=== PATIENT | female | born 1955 | race Caucasian/White ===

== ENCOUNTER 2020-02-07 14:38 | Inpatient (IN) ==
--- NOTE | 2020-02-07 15:07 | Emergency Department Note ---
History of Present Illness General Chief complaint: Illness Time Seen by Provider: 02/07/20 14:40 Source: patient and EMS History of Present Illness Provider complaint: Lightheadedness Onset (ago): day(s) Location: head Severity: moderate Pain Consistency: + intermittent Quality: + other (Near syncope and syncope) Relieved By: + none Exacerbated By: + none Associated symptoms: + cough, + fever/chills, + headaches, + malaise, + shortness of breath and + syncope; no chest pain and no nausea/vomiting This is a 64-year-old female who presents with a syncopal event with near syncopal events following. The patient states that 2 days ago she was sitting in her chair when she felt very hot and clammy and passed out in her chair. She was briefly unconscious according to her . And she had no other preceding symptoms such as chest discomfort or pain, palpitations or shortness of breath. She does state that she was diagnosed with COVID-19 earlier this week at [facility]. She has been sick for about 8 days with diffuse myalgias, fever up to 101.5, cough and headache. Currently she states her headache is better but it was worse earlier in the week. She is on Eliquis for atrial fibrillation. She states yesterday and this morning she had similar events where she felt very hot and clammy and felt as if she was going to pass out. She did not pass out the subsequent times. She states she feels a tiny bit short of breath but otherwise is improving overall. She had a loss of taste and smell but that seems to be coming back. She does have some diarrhea. She denies any abdominal pain or vomiting. She denies any melena or hematochezia or hematuria. She is also concerned about Lyme disease as she had a tick last month. Home Medications Home Medications Medication Instructions Recorded Confirmed Type B-complex with vitamin C 1 tab PO QAM 11/04/18 02/07/20 History cholecalciferol (vitamin D3) 25 1,000 units PO QAM 02/03/19 02/07/20 History mcg (1,000 unit) capsule apixaban 5 mg tablet 5 mg PO BID #60 tab 09/19/19 02/07/20 Rx amlodipine 2.5 mg tablet 2.5 mg PO DAILY #90 tab 11/28/19 02/07/20 Rx levothyroxine 25 mcg PO QAM 02/07/20 02/07/20 History lisinopril 40 mg PO QAM 02/07/20 02/07/20 History metoprolol succinate 50 mg PO QAM 02/07/20 02/07/20 History Allergies Allergy/AdvReac Type Severity Reaction Status Date / Time No Known Drug Allergies Allergy Verified 02/07/20 15:13 Past Med/Surg History Medical History (Updated 02/07/20 @ 18:38 by Otilio Wakefield MD) Atrial fibrillation Hypothyroidism Lyme disease Surgical History No pertinent past surgical history Family History Father Heart disease Stroke Brother Heart disease Mother Leukemia Son Leukemia Social History Smoking Status: Never smoker Second Hand Exposure: No; Hx Alcohol Use: No Hx Substance Use: No Preferred Language: Irish Communication Ability: Effective Visual Impairment: No Limitations Hearing Ability: Normal Advertising Account Manager Required: No marital status: Current Living Situation: Spouse current occupational status: other 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 and A total of 10 systems reviewed and were otherwise negative Physical Exam Vital Signs Vital Signs - 24 hr 02/07/20 15:24 02/07/20 15:47 02/07/20 16:08 Temperature 36.7 C Temperature Source Oral Pulse Rate - Lying Pulse Rate - Sitting Pulse Rate - Standing Pulse Rate 90 102 H 93 H Pulse Rate from SpO2 Sensor 100 H 95 H Pulse Rhythm Irregular Respiratory Rate 21 23 23 Respiratory Effort / Characteristics Non-Labored Spontaneous Respiratory Depth Normal Respiratory Pattern Regular Blood Pressure - Lying Blood Pressure - Sitting Blood Pressure- Standing Blood Pressure 138/94 138/94 143/89 H Blood Pressure Mean 108 101 107 Pulse Oximetry 96 94 95 Oxygen Delivery Method Room Air Sepsis Recent Fever Within 48 Hours No Sepsis New/Unexplained Change in Mental Status No Sepsis Action Taken by Nursing No Action Required 02/07/20 16:11 02/07/20 16:13 02/07/20 16:14 Temperature Temperature Source Pulse Rate - Lying 98 H Pulse Rate - Sitting 115 H Pulse Rate - Standing 108 H Pulse Rate 133 H 106 H 116 H Pulse Rate from SpO2 Sensor 78 95 H 73 Pulse Rhythm Respiratory Rate 32 H 23 26 H Respiratory Effort / Characteristics Respiratory Depth Respiratory Pattern Blood Pressure - Lying 146/96 H Blood Pressure - Sitting 139/111 H Blood Pressure- Standing 170/100 H Blood Pressure 146/96 H 139/111 H 170/100 H Blood Pressure Mean 103 118 113 Pulse Oximetry 94 95 97 Oxygen Delivery Method Sepsis Recent Fever Within 48 Hours Sepsis New/Unexplained Change in Mental Status Sepsis Action Taken by Nursing 02/07/20 16:30 02/07/20 17:00 02/07/20 17:30 Temperature Temperature Source Pulse Rate - Lying Pulse Rate - Sitting Pulse Rate - Standing Pulse Rate 88 86 93 H Pulse Rate from SpO2 Sensor 93 H 87 98 H Pulse Rhythm Respiratory Rate 33 H 33 H 26 H Respiratory Effort / Characteristics Respiratory Depth Respiratory Pattern Blood Pressure - Lying Blood Pressure - Sitting Blood Pressure- Standing Blood Pressure 140/102 H 144/102 H 143/106 H Blood Pressure Mean 127 120 115 Pulse Oximetry 96 96 94 Oxygen Delivery Method Sepsis Recent Fever Within 48 Hours Sepsis New/Unexplained Change in Mental Status Sepsis Action Taken by Nursing Constitutional: Vital signs reviewed. Eyes: Pupils are equal round reactive to light. Conjunctiva are noninjected. ENT: Pharynx is clear without erythema or exudate. Mucous membranes are moist. No midline tenderness to cervical spine. Neck supple without meningeal signs. Respiratory: Clear to auscultation bilaterally. Breath sounds are equal bilaterally. Cardiovascular: Regular rate and rhythm. No rubs or gallops. GI: Soft, nondistended and nontender. Bowel sounds are present. Musculoskeletal: No peripheral edema. No lower extremity tenderness. Integumentary: No cyanosis. or jaundice. Neurologic: The patient is awake and alert. Cranial nerves II-XII are intact. Motor is 5 out of 5 all extremities. Sensation is intact to light touch all extremities. Normal speech. No pronator drift. No limb ataxia. Psychiatric: Normal affect. Not anxious appearing. Course Administered Medications Discontinued Medications Ioversol (Optiray 320 125ml) 120 ml IV ONCE ONE Stop: 02/07/20 17:38 Last Admin: 02/07/20 17:37 Dose: 120 ml Documented by: [id number] Medical Decision Making Differential Diagnosis COVID-19 pneumonia, dysrhythmia, anemia, Lyme carditis, pulmonary embolism, ICH Medical Records Attestation: I reviewed the patient's medical records. I did perform a limited focused review of portions of the patient's old chart on the electronic medical record. The patient has had no recent pertinent visits to this hospital. Home Medications Current Medication List: was personally reviewed by me Laboratory Data Attestation: I reviewed the patient's lab results. Result diagrams: 02/07/20 15:53 02/07/20 15:53 Lab Results 02/07/20 02/07/20 02/07/20 Range/Units 15:53 15:53 15:53 WBC 5.66 (4.8-10.8) K/uL RBC 4.55 (4.2-5.4) M/uL Hgb 15.4 (12.0-16.0) g/dL Hct 45.2 (37-47) % MCV 99.3 (80-100) fL MCH 33.8 (25-34) pg MCHC 34.1 (32-36) g/dL RDW Std Deviation 47.6 H (36.4-46.3) fL RDW Coeff of Karena 13.2 (11.5-14.5) % Plt Count 196 (130-400) K/uL MPV 10.6 H (7.4-10.4) fL Immature Gran % (Auto) 0.2 % Neut % (Auto) 62.7 % Lymph % (Auto) 27.4 % Kaufman % (Auto) 9.0 % Eos % (Auto) 0.2 % Baso % (Auto) 0.5 % Neut # (Auto) 3.55 (1.4-6.5) K/uL Lymph # (Auto) 1.55 (1.2-3.4) K/uL Kaufman # (Auto) 0.51 (0.11-0.59) K/uL Eos # (Auto) 0.01 (0-0.5) K/uL Baso # (Auto) 0.03 (0-0.2) K/uL Immature Gran # (Auto) 0.01 (0.00-0.02) K/uL PT 10.9 (9.0-12.0) Seconds INR 1.0 (0.9-1.1) APTT 33.6 H (21.0-31.0) Seconds PTT Ratio 1.2 D-Dimer 720 H* (0-500) ug/L FEU Sodium 138 (136-145) mmol/L Potassium 3.8 (3.5-5.1) mmol/L Chloride 102 (98-107) mmol/L Carbon Dioxide 33 H (21-32) mmol/L Anion Gap 3.0 (3-11) BUN 12 (7-18) mg/dl Creatinine 0.75 (0.6-1.2) mg/dl Est Cr Clr Drug Dosing 91.9 ml/min Est GFR ( Amer) 96.3 Est GFR (Non-Af Amer) 83.1 BUN/Creatinine Ratio 16.3 (10-20) Glucose 106 H (70-99) mg/dl Calcium 8.6 (8.5-10.1) mg/dl Magnesium 2.4 (1.8-2.4) mg/dl Total Bilirubin 0.5 (0.2-1) mg/dl AST 37 (15-37) U/L ALT 33 (12-78) U/L Alkaline Phosphatase 76 (45-117) U/L Troponin I < 0.015 (0-0.045) ng/ml Total Protein 7.9 (6.4-8.2) gm/dl Albumin 3.2 L (3.4-5.0) gm/dl Globulin 4.7 H (2.5-4.0) gm/dl Albumin/Globulin Ratio 0.7 L (0.9-2) TSH 2.550 (0.300-4.500) uIu/ml Urine Color Urine Appearance (Clear) Urine pH (4.5-7.5) Ur Specific [place] (1.000-1.030) Urine Protein (Negative) Urine Glucose (UA) (Negative) Urine Ketones (Negative) Urine Blood (Negative) Urine Nitrite (Negative) Urine Bilirubin (Negative) Urine Urobilinogen (Negative) Ur Leukocyte Esterase (Negative) Urine WBC (Auto) (0-5) /hpf Urine RBC (Auto) (0-4) /hpf U Hyaline Cast (Auto) (0-5) /lpf U Epithel Cells (Auto) (0-5) /lpf Urine Bacteria (Auto) (Negative) Lyme Disease IgG Ab (Negative) Lyme Disease IgM Ab (Negative) 02/07/20 02/07/20 Range/Units 15:53 16:00 WBC (4.8-10.8) K/uL RBC (4.2-5.4) M/uL Hgb (12.0-16.0) g/dL Hct (37-47) % MCV (80-100) fL MCH (25-34) pg MCHC (32-36) g/dL RDW Std Deviation (36.4-46.3) fL RDW Coeff of Karena (11.5-14.5) % Plt Count (130-400) K/uL MPV (7.4-10.4) fL Immature Gran % (Auto) % Neut % (Auto) % Lymph % (Auto) % Kaufman % (Auto) % Eos % (Auto) % Baso % (Auto) % Neut # (Auto) (1.4-6.5) K/uL Lymph # (Auto) (1.2-3.4) K/uL Kaufman # (Auto) (0.11-0.59) K/uL Eos # (Auto) (0-0.5) K/uL Baso # (Auto) (0-0.2) K/uL Immature Gran # (Auto) (0.00-0.02) K/uL PT (9.0-12.0) Seconds INR (0.9-1.1) APTT (21.0-31.0) Seconds PTT Ratio D-Dimer (0-500) ug/L FEU Sodium (136-145) mmol/L Potassium (3.5-5.1) mmol/L Chloride (98-107) mmol/L Carbon Dioxide (21-32) mmol/L Anion Gap (3-11) BUN (7-18) mg/dl Creatinine (0.6-1.2) mg/dl Est Cr Clr Drug Dosing ml/min Est GFR ( Amer) Est GFR (Non-Af Amer) BUN/Creatinine Ratio (10-20) Glucose (70-99) mg/dl Calcium (8.5-10.1) mg/dl Magnesium (1.8-2.4) mg/dl Total Bilirubin (0.2-1) mg/dl AST (15-37) U/L ALT (12-78) U/L Alkaline Phosphatase (45-117) U/L Troponin I (0-0.045) ng/ml Total Protein (6.4-8.2) gm/dl Albumin (3.4-5.0) gm/dl Globulin (2.5-4.0) gm/dl Albumin/Globulin Ratio (0.9-2) TSH (0.300-4.500) uIu/ml Urine Color Dark Yellow Urine Appearance Clear (Clear) Urine pH 6.5 (4.5-7.5) Ur Specific [place] 1.020 (1.000-1.030) Urine Protein 2+ H (Negative) Urine Glucose (UA) Negative (Negative) Urine Ketones Negative (Negative) Urine Blood Negative (Negative) Urine Nitrite Negative (Negative) Urine Bilirubin Negative (Negative) Urine Urobilinogen Negative (Negative) Ur Leukocyte Esterase Negative (Negative) Urine WBC (Auto) 1-5 (0-5) /hpf Urine RBC (Auto) 0-4 (0-4) /hpf U Hyaline Cast (Auto) 0 (0-5) /lpf U Epithel Cells (Auto) >30 H (0-5) /lpf Urine Bacteria (Auto) Negative (Negative) Lyme Disease IgG Ab Negative (Negative) Lyme Disease IgM Ab Negative (Negative) Imaging Data Radiologist's Impression: XR chest 1V portable HISTORY: covid eval for pna COMPARISON: None. FINDINGS: The cardiac silhouette is mildly enlarged. No focal lung consolidations to suggest pneumonia. No evidence for pulmonary edema. No pleural effusions. No pneumothorax. IMPRESSION: Mild cardiomegaly. ACT 112: Negative or not required by law. Electronically signed by: Juan Crocker M.D. 02/07/2020 3:58 PM CHEST CTA for PULMONARY ARTERIES CT DOSE: 1849.53 mGy.cm HISTORY: syncope eval for PE TECHNIQUE: Multiaxial CT images of the chest were performed following the intravenous administration of contrast to evaluate the pulmonary arteries. Maximal intensity projection images were also obtained. A dose lowering technique was utilized adhering to the principles of ALARA. COMPARISON STUDY: None. FINDINGS: Normal caliber thoracic aorta with no evidence for dissection. The heart is mildly enlarged. No pleural or pericardial effusions. Small fat- containing hiatal hernia. No filling defects within the pulmonary arteries to suggest pulmonary embolus. Normal esophagus. Limited views of the upper abdomen demonstrate a normal liver, spleen, and adrenal glands. Prior cholecystectomy. A single prominent upper right paratracheal lymph node measuring 7 mm in short axis diameter. It does not meet CT criteria for pathologic involvement. Therefore, no mediastinal or hilar lymphadenopathy. No suspicious lytic or blastic osseous lesions. No pneumothorax. The central airways are patent. Small peripheral scattered groundglass opacities are noted throughout the lungs. This is consistent with the patient's history of a viral pneumonia (Covid). IMPRESSION: 1. No evidence for pulmonary embolus. 2. Mild cardiomegaly. 3. Scattered small peripheral groundglass airspace opacities consistent with the patient's history of a viral pneumonia. ACT 112: Negative or not required by law. Electronically signed by: Juan Crocker M.D. 02/07/2020 6:[address] DOSE: HISTORY: Headache. TECHNIQUE: Multiaxial CT images of the head were performed without the use of intravenous contrast. Automated exposure control was utilized for this study. A dose lowering technique was utilized adhering to the principles of ALARA. Comparison: None. Findings: The paranasal sinuses and mastoid air cells are clear. The calvarium and skull base are intact. The ventricles and sulci are within normal limits. There is no mass, hematoma, midline shift, or acute infarct. Impression: No acute intracranial abnormality. ACT 112: Negative or not required by law. Electronically signed by: Juan Crocker M.D. 02/07/2020 6:06 PM ECG Data Attestation: I personally reviewed and interpreted this ECG as follows: Indication: + syncope Rate (beats per minute): 97 Rhythm: + atrial fibrillation ECG ST segments: no ST elevation ECG Findings: no Q waves and no PVCs MDM Narrative I did evaluate the patient as noted above. The patient is presenting with a syncopal episode 2 days ago and had 2 near syncopal episodes today and yesterday. IV access was established. I did place an order for continuous cardiac monitoring. The monitor showed atrial fibrillation at a rate of 98 bpm. I did order and personally review the patient's 12-lead EKG as described above. She has no acute ischemic signs. I did order and personally reviewed the images of the patient's chest x-ray as described above. There is no evidence of pneumonia. I did order a urine analysis. I did order and review the patient's blood work as noted in the electronic medical record. CBC is unremarkable without leukocytosis or anemia. Electrolytes are unremarkable other than a CO2 of 33. Troponin is negative. Lyme testing is negative. D-dimer is elevated. While the D-dimer may be elevated from COVID-19 infection I was still concerned about the possibility of pulmonary embolism despite anticoagulation as the patient had a syncopal episode and 2 near syncopal episodes as well as intermittent tachycardia. I did discuss this with the patient who is agreeable to scanning. I did order a CT of the head and CT angiogram of the chest. I did review the images myself as well as the radiology report as described above. There is no evidence of intracranial hemorrhage. No evidence of pulmonary embolism. She does have signs consistent with COVID-19 pneumonia. I did discuss the test results with the patient. I did recommend hospitalization for further care and evaluation. I did discuss case with hospitalist and rifle case repairer. Impression & Plan Syncope, Atrial fibrillation, Headache, Anticoagulated, Pneumonia due to 2019 novel coronavirus Discharge Plan Visit Data Chief Complaint: Illness ED Provider: Otilio Wakefield Discharge Problem: Syncope, Atrial fibrillation, Headache, Anticoagulated, Pneumonia due to 2019 novel coronavirus Patient Disposition: Being Evaluated by Hospitalist Forms Stand Alone Forms: My [facility] Prescriptions Prescriptions: No Action B-complex with vitamin C tablet 1 tab PO QAM RF: 0 Eliquis 5 mg tablet 5 mg PO BID Qty: 60 RF: 11 cholecalciferol (vitamin D3) 1,000 unit capsule 1,000 units PO QAM RF: 0 amlodipine 2.5 mg tablet 2.5 mg PO DAILY Qty: 90 RF: 3 levothyroxine 25 mcg tablet 25 mcg PO QAM RF: 0 lisinopril 40 mg tablet 40 mg PO QAM RF: 0 metoprolol succinate 50 mg capsule,sprinkle,ER 24hr 50 mg PO QAM RF: 0 Referrals Referrals: Ángel Daigle MD [Primary Care Provider] - Discharge Problem: Syncope Qualifiers: Syncope type: unspecified Qualified Code(s): R55 - Syncope and collapse Atrial fibrillation Qualifiers: Atrial fibrillation type: unspecified chronic Qualified Code(s): I48.20 - Chronic atrial fibrillation, unspecified Headache Qualifiers: Headache type: unspecified Headache chronicity pattern: acute headache Intractability: not intractable Qualified Code(s): R51.9 - Headache, unspecified
--- NOTE | 2020-02-07 15:59 | XRay Report ---
XR chest 1V portable HISTORY: covid eval for pna COMPARISON: None. FINDINGS: The cardiac silhouette is mildly enlarged. No focal lung consolidations to suggest pneumoni a. No evidence for pulmonary edema. No pleural effusions. No pneumothorax. IMPRESSION: Mild cardiomegaly. ACT 112: Negative or not required by law. Electronically signed by: Juan Crocker M.D. 02/07/2020 3:58 PM
[2020-02-07 16:33] LABS: Mean Corpuscular Hgb Conc 34.1 g/dL (32-36); Mean Platelet Volume 10.6 fL (7.4-10.4); Platelet Count 196 K/uL (130-400)
[2020-02-07 16:41] LABS: Appearance Urine Clear (Clear); Bacteria Urine Automated Negative (Negative); Bilirubin Urine Negative (Negative); Blood Urine Negative (Negative); Cast Urine Automated 0 /lpf (0-5); Color Urine Dark Yellow; Epithelial Cell Urine Auto >30 /lpf (0-5); Glucose Urine UA Negative (Negative); Ketones Urine Negative (Negative); Leukocyte Esterase Urine Negative (Negative); Nitrite Urine Negative (Negative); Protein Urine 2+ (Negative); RBC Urine Automated 0-4 /hpf (0-4); Urobilinogen Urine Negative (Negative); pH Urine 6.5 (4.5-7.5)
[2020-02-07 16:46] LABS: Partial Thromboplastin Ratio 1.2; Partial Thromboplastin Time 33.6 Seconds (21.0-31.0); Prothrombin Time 10.9 Seconds (9.0-12.0)
[2020-02-07 16:50] LABS: Alanine Aminotransferase 33 U/L (12-78); Albumin Level 3.2 gm/dl (3.4-5.0); Aspartate Aminotransferase 37 U/L (15-37); BUN Creatinine Ratio 16.3 (10-20); Blood Urea Nitrogen 12 mg/dl (7-18); Calcium 8.6 mg/dl (8.5-10.1); Carbon Dioxide 33 mmol/L (21-32); Chloride 102 mmol/L (98-107); Creatinine Clr Calc Pharmacy 91.9 ml/min; Est GFR (African American) 96.3; Est GFR (Non-African American) 83.1; Glucose 106 mg/dl (70-99); Magnesium 2.4 mg/dl (1.8-2.4); Potassium 3.8 mmol/L (3.5-5.1); Sodium 138 mmol/L (136-145)
[2020-02-07 17:01] LABS: Albumin Globulin Ratio 0.7 (0.9-2); Alkaline Phosphatase 76 U/L (45-117); Bilirubin,Total 0.5 mg/dl (0.2-1); Globulin 4.7 gm/dl (2.5-4.0); Total Protein 7.9 gm/dl (6.4-8.2); Troponin I < 0.015 ng/ml (0-0.045)
[2020-02-07 17:08] LABS: D Dimer 720 ug/L FEU (0-500)
[2020-02-07 17:24] LABS: Basophils # (auto) 0.03 K/uL (0-0.2); Basophils % (auto) 0.5 %; Eosinophils # (auto) 0.01 K/uL (0-0.5); Eosinophils % (auto) 0.2 %; Hematocrit (blood only) 45.2 % (37-47); Hemoglobin 15.4 g/dL (12.0-16.0); Immature Granulocytes # (auto) 0.01 K/uL (0.00-0.02); Immature Granulocytes % (auto) 0.2 %; Lymphocytes # (auto) 1.55 K/uL (1.2-3.4); Lymphocytes % (auto) 27.4 %; Mean Corpuscular Hemoglobin 33.8 pg (25-34); Mean Corpuscular Volume 99.3 fL (80-100); Monocytes # (auto) 0.51 K/uL (0.11-0.59); Neutrophils # (auto) 3.55 K/uL (1.4-6.5); Neutrophils % (auto) 62.7 %; RDW Coefficient of Variation 13.2 % (11.5-14.5); RDW Standard Deviation 47.6 fL (36.4-46.3); Red Blood Count 4.55 M/uL (4.2-5.4); White Blood Count 5.66 K/uL (4.8-10.8)
[2020-02-07 17:28] LABS: Lyme Ab IgG w/WB Rflx Negative (Negative); Lyme Ab IgM w/WB Rflx Negative (Negative)
[2020-02-07] MEDS ORDERED: OPTIRAY 320 125ml IV ONE (17:37)
--- NOTE | 2020-02-07 18:07 | CT Scan Report ---
HEAD CT NONCONTRAST CT DOSE: HISTORY: Headache. TECHNIQUE: Multiaxial CT images of the head were performed without the use of intravenous contrast. A utomated exposure control was utilized for this study. A dose lowering technique was utilized adheri ng to the principles of ALARA. Comparison: None. Findings: The paranasal sinuses and mastoid air cells are clear. The calvarium and skull base are int act. The ventricles and sulci are within normal limits. There is no mass, hematoma, midline shift, or acute infarct. Impression: No acute intracranial abnormality. ACT 112: Negative or not required by law. Electronically signed by: Juan Crocker M.D. 02/07/2020 6:06 PM
--- NOTE | 2020-02-07 18:30 | CT Scan Report ---
CHEST CTA for PULMONARY ARTERIES CT DOSE: 1849.53 mGy.cm HISTORY: syncope eval for PE TECHNIQUE: Multiaxial CT images of the chest were performed following the intravenous administration of contrast to evaluate the pulmonary arteries. Maximal intensity projection images were also obtaine d. A dose lowering technique was utilized adhering to the principles of ALARA. COMPARISON STUDY: None. FINDINGS: Normal caliber thoracic aorta with no evidence for dissection. The heart is mildly enlarged . No pleural or pericardial effusions. Small fat-containing hiatal hernia. No filling defects within the pulmonary arteries to suggest pulmonary embolus. Normal esophagus. Limited views of the upper abd omen demonstrate a normal liver, spleen, and adrenal glands. Prior cholecystectomy. A single prominen t upper right paratracheal lymph node measuring 7 mm in short axis diameter. It does not meet CT crit eria for pathologic involvement. Therefore, no mediastinal or hilar lymphadenopathy. No suspicious ly tic or blastic osseous lesions. No pneumothorax. The central airways are patent. Small peripheral sca ttered groundglass opacities are noted throughout the lungs. This is consistent with the patient's hi story of a viral pneumonia (Covid). IMPRESSION: 1. No evidence for pulmonary embolus. 2. Mild cardiomegaly. 3. Scattered small peripheral groundglass airspace opacities consistent with the patient's history of a viral pneumonia. ACT 112: Negative or not required by law. Electronically signed by: Juan Crocker M.D. 02/07/2020 6:29 PM
--- NOTE | 2020-02-07 20:57 | Emergency Department Note ---
General (ED) Blank Date of Service February 07, 2020 This patient was signed out to me by Dr. Wakefield at shift change with the work-up complete and the patient was awaiting admission. When the patient saw Dr. Arana initially she wanted to go home but I talked her at length and she talked to her son and she is now willing to stay. Dr. Wakefield's concern was she had a syncopal episode other also 2 other near syncopal episode she has a history of A. fib and is also on anticoagulation is currently Covid positive. Based on this I do think it is reasonable to keep her for monitoring and a cardiac evaluation as well as monitoring for her Covid. Dr. Arana will be seeing her in the ER : Syncope Qualifiers: Syncope type: unspecified Qualified Code(s): R55 - Syncope and collapse Atrial fibrillation Qualifiers: Atrial fibrillation type: unspecified chronic Qualified Code(s): I48.20 - Chronic atrial fibrillation, unspecified Headache Qualifiers: Headache type: unspecified Headache chronicity pattern: acute headache Intractability: not intractable Qualified Code(s): R51.9 - Headache, unspecified
--- NOTE | 2020-02-07 22:34 | History & Physical Report ---
Date of Service February 07, 2020 Assessment & Plan (1) Syncope: Syncopal episode/near syncopal episodes- Likely secondary to decreased oral intake. Potentially an issue with arrhythmia. Present on Admission?: Yes (2) Pneumonia due to 2019 novel coronavirus: Patient has been symptomatic for a week to 10 days by her history. Would not be candidate for convalescent plasma or remdesivir. We will place her on Decadron 6 mg IV daily Present on Admission?: Yes (3) Atrial fibrillation: Atrial fibrillation/hypertension- Continue metoprolol succinate but will increase dosing from 50 mg every morning to 50 mg p.o. twice daily. Hold amlodipine 2.5 mg daily Decrease lisinopril from 40 to 20 mg daily Continue apixaban 5 mg p.o. twice daily Present on Admission?: Yes (4) Hypothyroidism: Continue levothyroxine 25 mcg daily Present on Admission?: Yes (5) Gout: No symptoms. Present on Admission?: Yes (6) Impaired fasting glucose: If morning glucose is elevated while on Decadron, will place patient on Accu-Cheks with coverage. Present on Admission?: Yes (7) Benign essential hypertension: See above. Present on Admission?: Yes History of Present Illness Chief Complaint: The patient presents to the emergency department with symptoms of cough, fever chills, headache, generalized malaise, shortness of breath and episodes of sweats, with there is question of syncopal/near syncopal events. Primary Care Provider: Ángel Daigle MD The patient is a 64-year-old female with a past medical history including atrial fibrillation, chronic anticoagulation, hypothyroidism, gout, benign essential hypertension and impaired fasting glucose. Her reports that she had in addition to generalized viral symptoms, a syncopal episode where she passed out in her chair for a few seconds, that the patient did not remember when I spoke with her. She had been seen at [facility] a few days ago, and was diagnosed with COVID-19 infection, and was discharged to home. She also described a recent tick infection in the past month, and was concerned about Lyme disease. Her oral intake has been decreased due to loss of taste and smell, but this has been slowly returning. She denies any sense of palpitations or rapid irregular heartbeat at any time during this interval. Allergies Allergy/AdvReac Type Severity Reaction Status Date / Time No Known Drug Allergies Allergy Verified 02/07/20 15:13 Home Medications Home Medications Medication Instructions Recorded Confirmed Type B-complex with vitamin C 1 tab PO QAM 11/04/18 02/07/20 History cholecalciferol (vitamin D3) 25 1,000 units PO QAM 02/03/19 02/07/20 History mcg (1,000 unit) capsule apixaban 5 mg tablet 5 mg PO BID #60 tab 09/19/19 02/07/20 Rx amlodipine 2.5 mg tablet 2.5 mg PO DAILY #90 tab 11/28/19 02/07/20 Rx levothyroxine 25 mcg PO QAM 02/07/20 02/07/20 History lisinopril 40 mg PO QAM 02/07/20 02/07/20 History metoprolol succinate 50 mg PO QAM 02/07/20 02/07/20 History Past Med/Surg History Medical History (Updated 02/07/20 @ 18:38 by Otilio Wakefield MD) Atrial fibrillation Hypothyroidism Lyme disease Surgical History No pertinent past surgical history Family History Father Heart disease Stroke Brother Heart disease Mother Leukemia Son Leukemia Social History Smoking Status: Never smoker Second Hand Exposure: No; Hx Alcohol Use: No Hx Substance Use: No Preferred Language: Romansh Communication Ability: Effective Visual Impairment: No Limitations Hearing Ability: Normal Steel 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 Required: No Beliefs That Will Affect Care: None marital status: Current Living Situation: Family current occupational status: other 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 Feels Safe at Home: Yes Safety Concerns: Feels Safe At This Time Childhood Exposure to Second-Hand Smoke: No caffeine: Yes (coffee and tea) Dental Care, Regularly: No Physical Activity Frequency: 1-2 Times per Week Seatbelt Use: always Sunscreen Use: No Review of Systems Review of Systems: The patient denies chest pain, palpitations, lower extremity swelling, sore throat, nausea, vomiting, diarrhea , constipation, abdominal pain, pelvic pain, blood in urine or stool, dysuria, urinary frequency or urgency, rash, abnormal bruising or bleeding, imbalance, focal weakness, numbness or tingling in arms or legs, back or neck pain, or night sweats. The review of systems is otherwise negative other than for that already noted above, and at least 10 systems have been reviewed. Physical Exam Physical Exam: The patient is awake, alert and oriented 3, well developed and well nourished, normocephalic and atraumatic, lying in bed and in no acute distress. HEENT--PERRL, EOMI, mucous membranes and oropharynx normal. Neck--supple. No JVD. No bruits. Thyroid normal, trachea midline, no adenopathy. Heart--normal S1 and S2. No murmurs, rubs or gallops. Lungs--clear bilaterally, no respiratory distress, no accessory muscle use. Abdomen--normal bowel sounds and soft. Nontender. Nondistended. Morbidly obese Extremities--no cyanosis or clubbing. No edema. There are good distal pulses b/l. Dermatologic--normal skin turgor, normal color, no abnormal lymph nodes, no rash. Neurologic--cranial nerves II through XII grossly intact. Rheumatologic--normal range of motion. Psychiatric--normal affect. Results & Data Results & Data ([facility]) Vital Signs (Past 12 Hours) Vital Signs Temp Pulse Pulse Resp BP BP Pulse Ox 02/07/20 22:32 97 H 19 166/115 H 94 02/07/20 21:13 98 H 22 158/106 H 95 02/07/20 19:30 87 22 02/07/20 19:00 104 H 22 02/07/20 18:30 89 24 02/07/20 17:30 93 H 26 H 143/106 H 94 02/07/20 17:00 86 33 H 144/102 H 96 02/07/20 16:30 88 33 H 140/102 H 96 02/07/20 16:14 116 H 26 H 170/100 H 97 02/07/20 16:13 106 H 23 139/111 H 95 02/07/20 16:11 133 H 32 H 146/96 H 94 02/07/20 16:08 93 H 23 143/89 H 95 02/07/20 15:47 102 H 23 138/94 94 02/07/20 15:24 98.1 F 90 21 138/94 96 Laboratory Results Laboratory Results WBC 5.66 K/uL (4.8-10.8) 02/07/20 15:53 RBC 4.55 M/uL (4.2-5.4) 02/07/20 15:53 Hgb 15.4 g/dL (12.0-16.0) 02/07/20 15:53 Hct 45.2 % (37-47) 02/07/20 15:53 MCV 99.3 fL (80-100) 02/07/20 15:53 MCH 33.8 pg (25-34) 02/07/20 15:53 MCHC 34.1 g/dL (32-36) 02/07/20 15:53 RDW Std Deviation 47.6 fL (36.4-46.3) H 02/07/20 15:53 RDW Coeff of Karena 13.2 % (11.5-14.5) 02/07/20 15:53 Plt Count 196 K/uL (130-400) 02/07/20 15:53 MPV 10.6 fL (7.4-10.4) H 02/07/20 15:53 Immature Gran % (Auto) 0.2 % 02/07/20 15:53 Neut % (Auto) 62.7 % 02/07/20 15:53 Lymph % (Auto) 27.4 % 02/07/20 15:53 [place] % (Auto) 9.0 % 02/07/20 15:53 Eos % (Auto) 0.2 % 02/07/20 15:53 Baso % (Auto) 0.5 % 02/07/20 15:53 Neut # (Auto) 3.55 K/uL (1.4-6.5) 02/07/20 15:53 Lymph # (Auto) 1.55 K/uL (1.2-3.4) 02/07/20 15:53 [place] # (Auto) 0.51 K/uL (0.11-0.59) 02/07/20 15:53 Eos # (Auto) 0.01 K/uL (0-0.5) 02/07/20 15:53 Baso # (Auto) 0.03 K/uL (0-0.2) 02/07/20 15:53 Immature Gran # (Auto) 0.01 K/uL (0.00-0.02) 02/07/20 15:53 PT 10.9 Seconds (9.0-12.0) 02/07/20 15:53 INR 1.0 (0.9-1.1) 02/07/20 15:53 APTT 33.6 Seconds (21.0-31.0) H 02/07/20 15:53 PTT Ratio 1.2 02/07/20 15:53 D-Dimer 720 ug/L FEU (0-500) H* 02/07/20 15:53 Sodium 138 mmol/L (136-145) 02/07/20 15:53 Potassium 3.8 mmol/L (3.5-5.1) 02/07/20 15:53 Chloride 102 mmol/L (98-107) 02/07/20 15:53 Carbon Dioxide 33 mmol/L (21-32) H 02/07/20 15:53 Anion Gap 3.0 (3-11) 02/07/20 15:53 BUN 12 mg/dl (7-18) 02/07/20 15:53 Creatinine 0.75 mg/dl (0.6-1.2) 02/07/20 15:53 Est Cr Clr Drug Dosing 91.9 ml/min 02/07/20 15:53 Est GFR ( Amer) 96.3 02/07/20 15:53 Est GFR (Non-Af Amer) 83.1 02/07/20 15:53 BUN/Creatinine Ratio 16.3 (10-20) 02/07/20 15:53 Glucose 106 mg/dl (70-99) H 02/07/20 15:53 Calcium 8.6 mg/dl (8.5-10.1) 02/07/20 15:53 Magnesium 2.4 mg/dl (1.8-2.4) 02/07/20 15:53 Total Bilirubin 0.5 mg/dl (0.2-1) 02/07/20 15:53 AST 37 U/L (15-37) 02/07/20 15:53 ALT 33 U/L (12-78) 02/07/20 15:53 Alkaline Phosphatase 76 U/L (45-117) 02/07/20 15:53 Troponin I < 0.015 ng/ml (0-0.045) 02/07/20 15:53 Total Protein 7.9 gm/dl (6.4-8.2) 02/07/20 15:53 Albumin 3.2 gm/dl (3.4-5.0) L 02/07/20 15:53 Globulin 4.7 gm/dl (2.5-4.0) H 02/07/20 15:53 Albumin/Globulin Ratio 0.7 (0.9-2) L 02/07/20 15:53 TSH 2.550 uIu/ml (0.300-4.500) 02/07/20 15:53 Urine Color Dark Yellow 02/07/20 16:00 Urine Appearance Clear (Clear) 02/07/20 16:00 Urine pH 6.5 (4.5-7.5) 02/07/20 16:00 Ur Specific [place] 1.020 (1.000-1.030) 02/07/20 16:00 Urine Protein 2+ (Negative) H 02/07/20 16:00 Urine Glucose (UA) Negative (Negative) 02/07/20 16:00 Urine Ketones Negative (Negative) 02/07/20 16:00 Urine Blood Negative (Negative) 02/07/20 16:00 Urine Nitrite Negative (Negative) 02/07/20 16:00 Urine Bilirubin Negative (Negative) 02/07/20 16:00 Urine Urobilinogen Negative (Negative) 02/07/20 16:00 Ur Leukocyte Esterase Negative (Negative) 02/07/20 16:00 Urine WBC (Auto) 1-5 /hpf (0-5) 02/07/20 16:00 Urine RBC (Auto) 0-4 /hpf (0-4) 02/07/20 16:00 U Hyaline Cast (Auto) 0 /lpf (0-5) 02/07/20 16:00 U Epithel Cells (Auto) >30 /lpf (0-5) H 02/07/20 16:00 Urine Bacteria (Auto) Negative (Negative) 02/07/20 16:00 Lyme Disease IgG Ab Negative (Negative) 02/07/20 15:53 Lyme Disease IgM Ab Negative (Negative) 02/07/20 15:53 COVID-19 Eval Order Covid19 IDNow [facility] 02/07/20 21:19 SARS-CoV-2, RNA, NAAT POSITIVE (NEGATIVE) A* 02/07/20 21:19 Diagnostic Findings [facility], [id number] XRay Report Patient: GURDEEP BRICE AAdmit Date: 02/07/20MR#: [id number]: 60 MILL RDAcct ID:[id number]: Date: [address] [place] [address] Zip: [place], [place] [address]Aod: 64Location: EDSex: FRoom/Bed:Att Phy:Diagnosis: ILLNESSPri Phy: Ángel Daigle, TABATHAervice Date: 02/07/20Fa Phy:Interpreting Phy: Juan Barragan Phy: Ordering Phy: Otilio Wakefield MD cc: ~ XR chest 1V portable HISTORY: covid eval for pna COMPARISON: None. FINDINGS: The cardiac silhouette is mildly enlarged. No focal lung consolidations to suggest pneumonia. No evidence for pulmonary edema. No pleural effusions. No pneumothorax. IMPRESSION: Mild cardiomegaly. ACT 112: Negative or not required by law. Electronically signed by: Juan Crocker M.D. 02/07/2020 3:58 PM Dictated: 02/07/20 1557Transcribed: 02/07/20 1557 [facility], [id number] CT Scan Report Patient: GURDEEP BRICE AAdmit Date: 02/07/20MR#: [id number]: 60 MILL RDAcct ID:[id number]: Date: [address] [place] [address] Zip: [place], [place] [address]Rdd: 64Location: EDSex: FRoom/Bed:Att Phy:Diagnosis: ILLNESSPri Phy: Ángel Daigle MDService Date: 02/07/20Fa Phy:Interpreting Phy: Juan Crocker MDAjon Phy: Ordering Phy: Otilio Wakefield MD cc: ~ HEAD CT NONCONTRAST CT DOSE: HISTORY: Headache. TECHNIQUE: Multiaxial CT images of the head were performed without the use of intravenous contrast. Automated exposure control was utilized for this study. A dose lowering technique was utilized adhering to the principles of ALARA. Comparison: None. Findings: The paranasal sinuses and mastoid air cells are clear. The calvarium and skull base are intact. The ventricles and sulci are within normal limits. There is no mass, hematoma, midline shift, or acute infarct. Impression: No acute intracranial abnormality. ACT 112: Negative or not required by law. Electronically signed by: Juan Crocker M.D. 02/07/2020 6:06 PM Dictated: 02/07/201802Transcribed: 02/07/201802 [facility], [id number] CT Scan Report Patient: GURDEEP BRICE AAdmit Date: 02/07/20MR#: [id number]: 60 MILL RDAcct ID:[id number]: Date: [address] [place] [address] Zip: [place], [place] [address]Rhp: 64Location: EDSex: FRoom/Bed:Att Phy:Diagnosis: ILLNESSPri Phy: Ángel Daigle, MDService Date: 02/07/20Fa Phy:Interpreting Phy: Juan Crocker MDAdmit Phy: Ordering Phy: Otilio Wakefield MD cc: ~ CHEST CTA for PULMONARY ARTERIES CT DOSE: 1849.53 mGy.cm HISTORY: syncope eval for PE TECHNIQUE: Multiaxial CT images of the chest were performed following the intravenous administration of contrast to evaluate the pulmonary arteries. Maximal intensity projection images were also obtained. A dose lowering technique was utilized adhering to the principles of ALARA. COMPARISON STUDY: None. FINDINGS: Normal caliber thoracic aorta with no evidence for dissection. The heart is mildly enlarged. No pleural or pericardial effusions. Small fat- containing hiatal hernia. No filling defects within the pulmonary arteries to suggest pulmonary embolus. Normal esophagus. Limited views of the upper abdomen demonstrate a normal liver, spleen, and adrenal glands. Prior cholecystectomy. A single prominent upper right paratracheal lymph node measuring 7 mm in short axis diameter. It does not meet CT criteria for pathologic involvement. Therefore, no mediastinal or hilar lymphadenopathy. No suspicious lytic or blastic osseous lesions. No pneumothorax. The central airways are patent. Small peripheral scattered groundglass opacities are noted throughout the lungs. This is consistent with the patient's history of a viral pneumonia (Covid). IMPRESSION: 1. No evidence for pulmonary embolus. 2. Mild cardiomegaly. 3. Scattered small peripheral groundglass airspace opacities consistent with the patient's history of a viral pneumonia. ACT 112: Negative or not required by law. Electronically signed by: Juan Crocker M.D. 02/07/2020 6:29 PM Dictated: 02/07/201821Transcribed: 02/07/201821 Code Status & VTE Plan Code Status Full code VTE Prophylaxis Plan VTE Prophylaxis will be ordered: Yes PG Care Time/CCT Total # of Minutes Spent Total Time Spent with Patient: Total time spent is greater than 50% in coordination of care (as documented) at patient's floor/unit and/or counseling patient: Coding Level of Care Code 54797 OBS Care - Level 3 Diagnoses Syncope R55 Syncope type: unspecified Pneumonia due to 2019 novel coronavirus U07.1; J12.89 Atrial fibrillation I48.20 Atrial fibrillation type: unspecified chronic Hypothyroidism E03.9 Gout M10.9 Impaired fasting glucose R73.01 Benign essential hypertension I10 (1) Syncope Syncope type: unspecified Qualified Code(s): R55 - Syncope and collapse (2) Atrial fibrillation Atrial fibrillation type: unspecified chronic Qualified Code(s): I48.20 - Chronic atrial fibrillation, unspecified
[2020-02-08] MEDS ORDERED: ALUMINUM/MAGNESIUM SUSP 30 ML UDC PO PRN (00:29)
[2020-02-08] MEDS ORDERED: ONDANSETRON INJ 2 MG/ML 2 ML VIAL IV PRN (00:29)
[2020-02-08] MEDS ORDERED: MAGNESIUM HYDROXIDE SUSP 30 ML UDC PO PRN (00:29)
[2020-02-08] MEDS ORDERED: ACETAMINOPHEN 325 MG TAB PO PRN (00:29)
[2020-02-08] MEDS ORDERED: DEXAMETHASONE SOD INJ 4 MG/ML VIAL IV STA (00:29)
[2020-02-08] MEDS ORDERED: DEXAMETHASONE SOD PHOSPHATE 6 MG in SYRINGE 0 ML IV ONE ×2 (00:45→09:00)
[2020-02-08] MEDS: METOPROLOL SUCC 50MG EXT REL TAB PO SCH ×3 (02:57→21:47)
[2020-02-08] MEDS: LEVOTHYROXINE SODIUM 25 MCG TABLET PO SCH (05:19)
--- NOTE | 2020-02-08 06:58 | Electrocardiogram Report ---
Test Reason : Blood Pressure : / mmHG Vent. Rate : 111 BPM Atrial Rate : 107 BPM P-R Int : 000 ms QRS Dur : 080 ms QT Int : 362 ms P-R-T Axes : 000 002 -28 degrees QTc Int : 492 ms Poor data quality, interpretation may be adversely affected Atrial fibrillation with rapid ventricular response Nonspecific T wave abnormality Abnormal ECG No previous ECGs available Confirmed by Catalino Simon ([id number]) on 02/08/2020 6:58:04 AM Referred By: Ángel Daigle Confirmed By:Catalino Simon
[2020-02-08] MEDS: lisinopril 20 MG TAB PO SCH (08:33)
[2020-02-08] MEDS: CHOLECALCIFEROL 1,000 UNITS 25 MCG TAB PO SCH (08:33)
[2020-02-08] MEDS: APIXABAN 5 MG TABLET PO SCH ×2 (08:33→21:47)
[2020-02-08] MEDS: VITAMIN B COMPLEX TAB PO SCH (08:34)
[2020-02-08] MEDS ORDERED: DEXAMETHASONE SOD INJ 4 MG/ML VIAL IV SCH (09:00)
[2020-02-08] MEDS ORDERED: DEXAMETHASONE SOD PHOSPHATE 6 MG in SYRINGE 0 ML IV SCH (09:00)
--- NOTE | 2020-02-08 12:24 | Hospitalist Progress Note ---
Date of Service February 08, 2020 Assessment & Plan (1) Syncope: Syncopal episode on with prior near syncopal episodes. These are likely vasovagal in nature from decreased oral intake, but afib with RVR may be worsening her perfusion. Low concern for ventricular arrhythmia and no concern for CVA/TIA. - Monitor on tele - Control rate with beta-jose adjustment - TTE (2) Pneumonia due to 2019 novel coronavirus: Patient has been symptomatic for a week to 10 days by her history. Would not be candidate for convalescent plasma or remdesivir. - Continue dexamethasone 6 mg PO daily, though patient barely meets "severe" category with SpO2 lowest of 92% on room air. (3) Atrial fibrillation: Paroxysmal per notes from PCP. - Continue metoprolol succinate PO BID - Hold amlodipine 2.5 mg daily - Decreased lisinopril 20 mg daily - Continue apixaban 5 mg p.o. twice daily - TTE pending as above (4) Hypothyroidism: TSH was 2.5 this admission. - Continue levothyroxine 25 mcg daily (5) Gout: No symptoms. Did not tolerate allopurinol. - Monitor (6) Impaired fasting glucose: AM glucose was 106. - Monitor (7) Benign essential hypertension: As above Admission and Anticipated Discharge Date Admission Date: February 07, 2020 Subjective Overall feeling well. No major concerns. She is not feeling her afib when she runs faster. Some cough. Reports no fevers/chills, chest pain, shortness of breath, abdominal pain, nausea, or vomiting. Physical Exam Constitutional: WD/WN, vitals as above Eyes: EOM intact bilaterally; no conjunctival abnormality ENMT: external ear and nose normal, oropharynx normal Neck: trachea midline, no thyromegaly normal visual inspection Respiratory: normal respiratory effort, lungs clear to auscultation no respiratory distress Cardiovascular: Rate/Rhythm: + tachycardic and + irregularly irregular Heart Sounds: normal S1 and normal S2; no murmur Extremities: no edema Gastrointestinal (Abdomen): Inspection/Auscultation: abdomen normal to inspection; abdomen not distended Musculoskeletal: no cyanosis or clubbing, extremities motor strength 5/5 Skin: no rashes, warm and dry Neurologic: moves all extremities and awake Psychiatric: Orientation: alert, oriented to person and cooperative Results & Data Results & Data ([facility]) Vital Signs (Past 12 Hours) Vital Signs Temp Pulse Pulse Resp BP Pulse Ox 02/08/20 11:33 85 18 113/77 94 02/08/20 07:39 36.7 C 92 H 20 140/104 H 92 02/08/20 05:02 37.4 C 94 H 18 119/82 92 02/08/20 00:48 119 H 02/08/20 00:29 37.6 C H 111 H 16 152/93 H 94 PG Care Time/CCT Total # of Minutes Spent Total Time Spent with Patient: Total time spent is greater than 50% in coordination of care (as documented) at patient's floor/unit and/or counseling patient: Coding Level of Care Code 68740 Subseq Hosp Care Lvl 3 Diagnoses Syncope R55 Syncope type: unspecified Pneumonia due to 2019 novel coronavirus U07.1; J12.89 Atrial fibrillation I48.20 Atrial fibrillation type: unspecified chronic Hypothyroidism E03.9 Gout M10.9 Impaired fasting glucose R73.01 Benign essential hypertension I10 (1) Syncope Syncope type: unspecified Qualified Code(s): R55 - Syncope and collapse (2) Atrial fibrillation Atrial fibrillation type: unspecified chronic Qualified Code(s): I48.20 - Chronic atrial fibrillation, unspecified
[2020-02-09] MEDS: LEVOTHYROXINE SODIUM 25 MCG TABLET PO SCH (05:17)
[2020-02-09 08:31] LABS: Hematocrit (blood only) 41.2 % (37-47); Hemoglobin 14.5 g/dL (12.0-16.0); Mean Corpuscular Hemoglobin 34.4 pg (25-34); Mean Corpuscular Hgb Conc 35.2 g/dL (32-36); Mean Corpuscular Volume 97.6 fL (80-100); Mean Platelet Volume 10.7 fL (7.4-10.4); Platelet Count 248 K/uL (130-400); RDW Standard Deviation 46.5 fL (36.4-46.3); Red Blood Count 4.22 M/uL (4.2-5.4); White Blood Count 8.89 K/uL (4.8-10.8)
[2020-02-09] MEDS: APIXABAN 5 MG TABLET PO SCH (08:38)
[2020-02-09] MEDS: lisinopril 20 MG TAB PO SCH (08:38)
[2020-02-09] MEDS: CHOLECALCIFEROL 1,000 UNITS 25 MCG TAB PO SCH (08:38)
[2020-02-09] MEDS: VITAMIN B COMPLEX TAB PO SCH (08:39)
[2020-02-09] MEDS: METOPROLOL SUCC 50MG EXT REL TAB PO SCH (08:39)
[2020-02-09] MEDS ORDERED: dexAMETHasone 1 MG TAB PO SCH (09:00)
[2020-02-09 09:41] LABS: Calcium 8.7 mg/dl (8.5-10.1); Est GFR (African American) 105.1; Est GFR (Non-African American) 90.7; Magnesium 2.3 mg/dl (1.8-2.4); Phosphorus 3.8 mg/dl (2.5-4.9); Potassium 4.1 mmol/L (3.5-5.1)
--- NOTE | 2020-02-09 13:54 | XCELERA ---
[id number]
--- NOTE | 2020-02-09 17:59 | Discharge Summary ---
Date of Service February 09, 2020 Admission HPI Per Admitting Provider The patient is a 64-year-old female with a past medical history including atrial fibrillation, chronic anticoagulation, hypothyroidism, gout, benign essential hypertension and impaired fasting glucose. Her reports that she had in addition to generalized viral symptoms, a syncopal episode where she passed out in her chair for a few seconds, that the patient did not remember when I spoke with her. She had been seen at [facility] a few days ago, and was diagnosed with COVID-19 infection, and was discharged to home. She also described a recent tick infection in the past month, and was concerned about Lyme disease. Her oral intake has been decreased due to loss of taste and smell, but this has been slowly returning. She denies any sense of palpitations or rapid irregular heartbeat at any time during this interval. Principal Diagnosis Covid-19 and afib with RVR Discharge Exam Constitutional WD/WN, vitals as above Eyes EOM intact bilaterally; no conjunctival abnormality ENMT external ear and nose normal, oropharynx normal Neck trachea midline, no thyromegaly normal visual inspection Respiratory normal respiratory effort, lungs clear to auscultation no respiratory distress Cardiovascular Rate/Rhythm: + tachycardic and + irregularly irregular Heart Sounds: normal S1 and normal S2; no murmur Extremities: no edema Gastrointestinal (Abdomen) Inspection/Auscultation: abdomen normal to inspection; abdomen not distended Musculoskeletal no cyanosis or clubbing, extremities motor strength 5/5 Skin no rashes, warm and dry Neurologic moves all extremities and awake Psychiatric Orientation: alert, oriented to person and cooperative Discharge Data Allergies Allergy/AdvReac Type Severity Reaction Status Date / Time No Known Drug Allergies Allergy Verified 02/07/20 15:13 Consultations 02/07/20 18:01 ED Decision to Admit Stat 02/08/20 00:29 Consult Case Management - Discharge Planning Routine Ordered Studies 02/07/20 15:01 CT head/brain wo con Stat 02/07/20 17:09 CT angio chest PE protocol Stat Hospital Course (1) Syncope: Syncopal episode on with prior near syncopal episodes. These are likely vasovagal in nature from decreased oral intake, but afib with RVR may be worsening her perfusion. Low concern for ventricular arrhythmia and no concern for CVA/TIA. - Monitor on tele - Control rate with beta-jose adjustment -> Doubled her metoprolol to 50 mg PO BID - TTE was normal with EF 60-65%, no valvular abnormalties. (2) Pneumonia due to 2019 novel coronavirus: Patient has been symptomatic for a week to 10 days by her history. Would not be candidate for convalescent plasma or remdesivir. - Continue dexamethasone 6 mg PO daily x 10 days (3) Atrial fibrillation: Paroxysmal per notes from PCP. - Continue metoprolol succinate PO BID - Continue apixaban 5 mg p.o. twice daily - TTE as above (4) Hypothyroidism: TSH was 2.5 this admission. - Continue levothyroxine 25 mcg daily (5) Gout: No symptoms. Did not tolerate allopurinol. - Monitor (6) Impaired fasting glucose: AM glucose was 106. - Monitor (7) Benign essential hypertension: As above Total Time Total Time Spent Total Time Spent (In Minutes): 35 Discharge Plan Discharge Items Patient Disposition: Home - Self-Care Reason For Visit: SYNCOPE, ATRIA FIB, COVID 19 PNEUMONIA Discharge Diagnosis: Covid-19 Activity: Resume your previous activity Non-emergency contact: Primary Care Provider Call non-emergency contact if: your symptoms worsen and your temperature is above 101 Follow-up/Referrals: Ángel Daigle MD [Primary Care Provider] - 02/16/20 3:00 pm (Please follow up with Dr. Daigle on Sunday02/16/2020 at 3:00 pm. Please arrive to the office 15 minutes early for your appointment. If you are unable to keep this appointment, please call the office to reschedule at [phone].) Diet: Heart Healthy Addtl Attending Provider Instructions: You were admitted with Covid-19. We believe this was causing your heart to run faster than normal which may have been the reason you were having episodes of lightheadedness and passed out. We are sending you home on 8 more days of steroids to help reduce the inflammation in your lungs. We adjusted your medications, and your heart is at a much more normal speed now. Take your metoprolol 2 times per day instead of the 1 time per day to help keep your heart in a regular rate. Additionally, your heart is squeezing well on the ultrasound test. This is also great news! We also checked your thyroid which was normal (with your Synthroid) and also checked for Lyme which was also negative. I am not sure why you have been having sweats at home. The only thing that we can't really test would be a "menopausal" symptoms. I would speak with Dr. Daigle about this, and also make sure your usual cancer screenings such as mammogram and colonoscopy are up to date. Pending Studies at Discharge: No Stand-Alone Forms: My [facility], Smoking Cessation Medications and DC Order Prescriptions: New dexamethasone 1 mg Tablet 6 mg PO QAM Qty: 8 RF: 0 Continued B-complex with vitamin C tablet 1 tab PO QAM RF: 0 Eliquis 5 mg tablet 5 mg PO BID Qty: 60 RF: 11 cholecalciferol (vitamin D3) 1,000 unit capsule 1,000 units PO QAM RF: 0 amlodipine 2.5 mg tablet 2.5 mg PO DAILY Qty: 90 RF: 3 levothyroxine 25 mcg tablet 25 mcg PO QAM RF: 0 lisinopril 40 mg tablet 40 mg PO QAM RF: 0 Changed metoprolol succinate 50 mg capsule,sprinkle,ER 24hr 50 mg PO BID Qty: 60 RF: 0 Discharge Orders: Discharge Order (Routine); Ordered 02/09/20 Ordered By: Donnell Sahni Admission Data Admit Date/Time: 02/08/20 12:27 Attending Provider: Donnell Sahni Admit Provider: Shakeel Arciniega Primary Care Provider: Ángel Daigle Other Providers: Donnell Sahni ; Phong Burton Other Interventions: Discharge Summary Assessment (RN) Last Done: 02/09/20 15:05 Coding Level of Care Code D/C Day Management >30 mins Diagnoses Syncope R55 Syncope type: unspecified Pneumonia due to 2019 novel coronavirus U07.1; J12.89 Atrial fibrillation I48.20 Atrial fibrillation type: unspecified chronic Hypothyroidism E03.9 Gout M10.9 Impaired fasting glucose R73.01 Benign essential hypertension I10
== END 2020-02-09 16:28 | disposition home or self-care (01) | DRG 177 ==
LOC: ED 14:38 → 2S 14:38 → SUATTDRO 22:32 → 2S 23:49